=== PATIENT | female | born 1965 | race Caucasian/White ===

== ENCOUNTER → 2017-11-08 19:23 | Outpatient (CLI) | payer OTHER, SELFPAY ==
[2017-11-11 08:18] LABS: HPV APTIMA, High Risk Negative (Negative)
== END ==
PROVIDERS: Visit Provider Obstetrics & Gynecology
DX: Z12.4 Encounter for screening for malignant neoplasm of cervix (principal)
CPT/HCPCS: 88175; G0145

== ENCOUNTER → 2017-12-21 07:54 | Outpatient (CLI) | payer OTHER, SELFPAY ==
--- NOTE | 2017-12-21 07:56 | BI_ITS ---
MAMMOGRAPHY - BILATERAL SCREENING 3-D [place] SYNTHESIS REASON FOR EXAM: Female, 52 years old. Bilateral Screening 3-D tomosynthesis PERTINENT HISTORY: Asymptomatic. No significant family history. TECHNIQUE: 2-D mammograms and 3-D [place] synthesis of the breast (s) were performed. CAD was performed. COMPARISON: 10/22/2016, 10/20/2015. FINDINGS: The breast composition is composed of scattered fibroglandular density. No new asymmetric density, dominant mass, dense spiculated masses, abnormal clustered microcalcifications, architectural distortion, skin thickening or nipple retraction identified. Coarse benign-appearing calcifications. No new abnormality identified with tomosynthesis. There has been no significant change since the prior study. BI/SCREENING MAMM (CAD), BILAT IMPRESSION: No mammographic signs of malignancy. Routine yearly mammograms recommended. ASSESSMENT CATEGORY: BIRADS Category 2: Benign. A letter regarding these results will be sent to the patient by the facility within 30 days. FOLLOW UP RECOMMENDATION: Yearly follow up mammogram recommended. (A) Negative results should not deter biopsy as a palpable lesion should be followed on clinical grounds and biopsy performed if clinically persistent for 3 months or increasing size. Approximately 10% of breast cancers are not detected by mammography. A normal mammogram should not delay biopsy of a clinically suspicious abnormality. Electronically Signed: Cr Rodriguez, at 18:41 EDT Tel , Service support ,
== END ==
PROVIDERS: Family Provider Internal Medicine; PCP Internal Medicine; Visit Provider Obstetrics & Gynecology
DX: Z12.31 Encounter for screening mammogram for malignant neoplasm of breast (principal)
CPT/HCPCS: 77063; 77067

== ENCOUNTER → 2018-03-04 10:55 | Outpatient (CLI) | payer OTHER, SELFPAY ==
[2018-03-04 12:12] LABS: Absolute Lymphocyte Count 2.21 X10^3/ul (0.83-4.51); Absolute Neutrophil Count 2.7 X10^3/uL (2.0-7.7); Basophil# 0.01 X10^3/uL; Basophil% 0.2 % (0-1); Eosinophil# 0.14 X10^3/uL; Eosinophils% 2.5 % (0-5); Hematocrit 38.3 % (37-47); Hemoglobin 12.2 g/dl (12.0-15.0); Lymphocyte # 2.21 X10^3/ul (4.0); Lymphocyte % 39.6 % (19-41); Mean Corp Hgb Conc 31.9 g/gl (32-36); Mean Corpuscular Hgb 27.8 pg (27.0-32.0); Mean Corpuscular Volume 87.2 fL (81-99); Mean Platelet Vol. 11.9 fl (6.2-12.0); Monocyte# 0.54 X10^3/uL; Monocyte% 9.7 % (0-10); Neutrophil # 2.67 X10^3/uL (2.7-7.7); Neutrophil % 47.8 % (47-70); Platelet Count 278 K/mm3 (150-450); RBC Distribution Width CV 13.1 % (11.6-14.6); RBC Distribution Width SD 41.9 fl (35.1-43.9); Red Blood Count 4.39 M/mm3 (4.2-5.4); White Blood Count 5.6 K/mm3 (4.4-11.0)
[2018-03-04 12:13] LABS: POSITIVE COUNT NO; POSITIVE DIFFERENTIAL NO; POSITIVE MORPHOLOGY NO
[2018-03-04 12:39] LABS: ALB/GLOB Ratio 0.8 RATIO (0.9-2.4); AST(SGOT) 24 U/L (15-37); Alanine Aminotransfer ALT/SGPT 29 U/L (13-56); Albumin, Serum 3.3 g/dL (3.2-5.0); Alkaline Phosphatase 103 U/L (45-117); Anion Gap 5 (5-15); BUN 24 mg/dL (7-18); BUN/Creat Ratio 35.2 RATIO (10-20); Calcium,Total 8.6 mg/dL (8.5-10.1); Chloride 107 mmol/L (98-107); Cholesterol 216 mg/dL (200); Creatinine, Serum 0.68 mg/dL (0.55-1.02); EST Glomerular Filtration Rate 96 mL/min (>60); Est Glom Filt Rate - Afr Amer 116 mL/min (>60); Globulin 4.2 g/dL (2.2-4.2); Glucose 82 mg/dL (74-106); High Density Lipoprotein 87 mg/dL; Protein, Total 7.5 g/dL (6.4-8.2); Sodium Level 140 mmol/L (136-145); T4 Free Direct 1.31 ng/dL (0.76-1.46); Thyroid Stim Hormone (TSH) 0.02 uIU/mL (0.358-3.74); Triglycerides 31 mg/dL; Very Low Density Lipoprotein 6 mg/dL (5-40)
== END ==
PROVIDERS: Family Provider Internal Medicine; PCP Internal Medicine; Referring Provider Internal Medicine; Visit Provider Internal Medicine
DX: E03.9 Hypothyroidism, unspecified (principal)
CPT/HCPCS: 36415; 80053; 80061; 84439; 84443; 85025

== ENCOUNTER → 2018-12-22 | Outpatient (CLI) | payer OTHER, SELFPAY ==
[2018-11-21 11:24] VITALS: BMI 26.5
--- NOTE | 2018-12-22 11:52 | BI_ITS ---
MAMMOGRAPHY - BILATERAL SCREENING REASON FOR EXAM: Female, 53 years old. Routine annual screening examination. PERTINENT HISTORY: Non-contributory. TECHNIQUE: Digital bilateral breast [place] (3D mammographic acquisition) in the CC and MLO projections. 2-D mediolateral oblique (MLO) and craniocaudad (CC) views of both breasts were obtained. CAD: Full Field Digital Mammography with Computer Added Detection was performed. COMPARISON: Comparison is made with prior study dated December 21, 2017. FINDINGS: Breast Composition: There are scattered areas of fibroglandular density. There are no dominant masses or suspicious calcifications. No other significant abnormalities are identified. There has been no significant change since the prior study. BI/SCREEN MAMM (CAD) W/[place] BILAT IMPRESSION: Stable bilateral screening mammogram. Yearly follow-up mammogram recommended. (A) ASSESSMENT CATEGORY: BIRADS Category 1: Negative. A letter regarding these results will be sent to the patient by the facility within 30 days. Approximately 10% of breast cancers are not detected by mammography. A normal mammogram should not delay biopsy of a clinically suspicious abnormality. [id number] Electronically Signed: Felton Lemus, at 12:58 EDT , Service support ,
== END | disposition home or self-care (01) ==
PROVIDERS: Family Provider Internal Medicine; PCP Internal Medicine; Referring Provider Obstetrics & Gynecology; Visit Provider Obstetrics & Gynecology
DX: Z12.31 Encounter for screening mammogram for malignant neoplasm of breast (principal)
CPT/HCPCS: 77063; 77067

== ENCOUNTER 2020-02-01 19:57 | Emergency (ER) | payer OTHER, SELFPAY ==
[2019-11-28 09:40] VITALS: BMI 26.5
[2020-02-01 19:58] VITALS: BP 123/65; PULSE 74; RESP 18; TEMP 36.7; O2SAT 99; BMI 26.6
--- NOTE | 2020-02-01 20:01 | RAD_ITS ---
HISTORY: Fell down the stairs this evening. COMPARISON: None FINDINGS: # of images incl. paperwork: 3 XR Ankle Min 3 Views : An transverse fracture is present through the lateral malleolus. The ankle mortise is intact. Soft tissue swelling is about the ankle, greater laterally. An ankle effusion is present. No additional fractures are perceived. RAD/Ankle min 3 Views IMPRESSION: Lateral malleolus fracture with effusion and soft tissue swelling to the Right ankle at 2043 Reported and signed by: Deuce Branham MD Electronically Signed: Deuce Branham MD at 20:42 EDT Tel , Service support ,
--- NOTE | 2020-02-01 20:06 | RAD_ITS ---
HISTORY: Fell down the stairs this evening. COMPARISON: None FINDINGS: # of images incl. paperwork: 3 XR Ankle Min 3 Views : Tiny corticated ossicles are present inferior to the medial malleolus No acute fracture is perceived The ankle mortise is intact. Soft tissue swelling is is present about the ankle with an ankle effusion.. RAD/Ankle min 3 Views IMPRESSION: No acute fracture to the Left ankle. Probable tiny old avulsion fracture from the medial malleolus at 2044 Reported and signed by: Deuce Branham MD Electronically Signed: Deuce Branham MD at 20:42 EDT Tel , Service support ,
--- NOTE | 2020-02-01 22:25 | RAD_ITS ---
STUDY: X-RAY - LEFT FOOT CLINICAL: Female, 54 years old. L down stairs. Bruising and swelling over the dorsal lateral aspect of the foot. TECHNIQUE: 3 view(s) of the foot. COMPARISON: None. FINDINGS: Normal talus, calcaneus, and tarsal bones. Normal visualized subtalar, talonavicular, calcaneocuboid, tarsal and tarsometatarsal articulations. Normal metatarsi. Normal metatarsophalangeal joint of the great toe. Normal tibial and fibular sesamoid bones. Normal interphalangeal joint of the great toe. Normal phalanges of the great toe. Normal second through fifth metatarsophalangeal joints. Normal interphalangeal joints and phalanges of the lesser toes. The soft tissue structures are unremarkable. RAD/Foot min 3 Views IMPRESSION: No acute fracture or dislocation. Electronically Signed: Junior Machuca DO at 23:08 EDT Tel [phone], Service support ,
--- NOTE | 2020-02-02 00:01 | ED.DCSUM_ITS ---
History of Present Illness Chief Complaint: Lower Extremity Injury Informant: Patient Occurred: Today Mechanism/Context: Fall Onset: Today Context: Sudden Onset Timing: Continuous Quality of Pain: Aching Narrative: Patient is a 54-year-old female with history of hypothyroid presenting with bilateral ankle pain after mechanical fall. Patient states she slipped on the last 4 or 5 steps at her house. She not hit her head. She denies any loss of consciousness. She has significant pain of her right ankle but also has pain of her left. She has bilateral swelling and bruising. She is not on any blood thinners. She temporarily had some tingling of her toes but this is since resolved. She not take anything for pain prior to arrival. No other complaints at this time. No prior history of any ankle or foot injuries. Past Medical History - Allergies and Home Meds Allergies/Adverse Reactions: Allergies No Known Allergies Allergy (Verified 02/01/20 20:00) Primary Care Physician: Shani Castro MD [Primary Care Provider] - Past Medical History: - - Hypothyroid Surgical History: noncontributory Lives: Spouse/ Significant Other Smoking Status: Never smoker Review of Systems General: Denies: Chills, Fever, Sweats Eyes: Denies: Visual changes - bilaterally, Diplopia ENT: Denies: Rhinorrhea, Sore throat Cardiovascular: Denies: Chest pain, Palpitations Respiratory: Denies: Dyspnea, Cough, Dyspnea on exertion Gastrointestinal: Denies: Abdominal pain, Nausea, Vomiting, Diarrhea, Melena, Hematochezia Genitourinary: Denies: Dysuria, Hematuria, Frequency Musculoskeletal: Reports: Swelling - Bilateral ankles, Extremity Pain - Lateral ankles. Denies: Back pain Skin: Denies: Rash, Wounds Neurological: Denies: Headache, Weakness, Numbness Physical Exam Inital Vital Signs reviewed: Yes - Extremity Exam Right Hip: Negative for: Deformity, Limited ROM Left Hip: Negative for: Deformity, Limited ROM Right Femur: Negative for: Deformity, Limited ROM Left Femur: Negative for: Deformity, Limited ROM Right Knee: Negative for: Deformity, Limited ROM Left Knee: Negative for: Deformity, Limited ROM Right Tib fib: - - Tenderness to palpation of the fibular head absent. Negative for: Deformity, Edema, Limited ROM Left Tib Fib: - - Tenderness to palpation of the fibular head absent. Negative for: Deformity, Edema, Limited ROM Right Ankle: Deformity - lateral ankle, Edema, Limited ROM, - - Normal Achilles mechanism Left Ankle: Edema, - - Normal Achilles mechanism. Negative for: Limited ROM Right Foot: Negative for: Deformity, Edema, Hematoma, Limited ROM Left Foot: Edema, - - Tenderness to palpation over the lateral proximal midfoot with associated soft tissue swelling and bruising. Negative for: Deformity, Limited ROM General: Well nourished, Well developed Head: Normocephalic, Atraumatic. Negative for: Trauma Eyes: Perrl, EOMI, - ENT: No Trauma, Moist Mucous Membranes, - - Hemotympanum absent Neck: Nontender, Full ROM Cardiovascular: Regular rate, Regular rhythm, No murmurs, - - 2+ bilateral DP pulses, brisk capillary refill Respiratory: No distress, CTA bilaterally, Chest nontender Abdomen: Soft, Nontender Skin: Normal color, No rash, - - See above Neurological: Alert, Oriented x3, Cranial nerves II-XII grossly intact, Normal Strength, Normal Sensation Psychological: Normal affect Diagnostic/Tx/Re-eval Clinical Impression(s) from Imaging Studies Ankle X-Ray 02/01/20 20:01 IMPRESSION: Lateral malleolus fracture with effusion and soft tissue swelling to the Right ankle at 2043 Reported and signed by: Deuce Branham MD Electronically Signed: Deuce Branham MD at 20:42 EDT Tel , Service support , Ankle X-Ray 02/01/20 20:06 IMPRESSION: No acute fracture to the Left ankle. Probable tiny old avulsion fracture from the medial malleolus at 2044 Reported and signed by: Deuce Branham MD Electronically Signed: Deuce Branham MD at 20:42 EDT Tel , Service support , Foot X-Ray 02/01/20 22:25 IMPRESSION: No acute fracture or dislocation. Electronically Signed: Junior Machuca DO at 23:08 EDT Tel [phone], Service support , - Medical Decision Making Patient is evaluated for ankle/feet injury after mechanical fall down the stairs. She appears nontoxic in no acute distress. She declines any pain medication in the emergency room. She does have significant swelling of her right lateral ankle as well as her left proximal lateral foot/ankle. Associated pinpoint tenderness to palpation of the right lateral malleolus. Range of motion is intact and she is neuro vastly intact. X-ray does show acute fracture of the right lateral malleolus. Joint space appears to be intact however I did discuss with podiatry on-call, Dr. Sandoval, who recommends a posterior splint. Patient is not appear to have any acute process of the left foot or ankle. She does have an old avulsion fracture but this is chronic. She is able to weight- bear on her left foot. Patient will be treated with an Bert wrap for sprain of her left ankle. She is given close podiatry outpatient follow-up. She is counseled on return precautions. Patient states he is having a lot of cramping in her legs and is requesting something for this. She is given 1 oral Valium just prior to discharge home. She is given a course of Motrin and Vernon for pain control. ED Disposition - Plan for ED Patient: Disposition: Home or Assisted Living Diagnosis: Left ankle sprain, Fracture of right ankle, lateral malleolus Instructions: ED Sprain Ankle, ED Ankle Fx Distal Fibula Prescriptions: Ibuprofen [Motrin] 600 mg PO Q6H PRN PRN #20 tab PRN Reason: Pain Score 1-10/10 Transmission Status: Pending to [id number] Hydrocodone Bitart/Apap 5-325 [Vernon 5MG-325MG] 1 tablet PO Q6H PRN PRN 3 Days #10 tablet PRN Reason: Pain Transmission Status: Received by [id number] Referrals: Shani Castro MD [Primary Care Provider] - Krysta Daigle DPM [STAFF PHYSICIAN] - Additional Instructions: Call podiatry on Tuesday morning to schedule a same-day appointment. Alternate Vernon and ibuprofen for pain. Elevate your leg is much as possible. Try not putting weight on your leg.
== END 2020-02-02 00:38 | disposition home or self-care (01) ==
PROVIDERS: Emergency Provider Emergency Medicine; PCP Internal Medicine
DX: S82.61XA Displaced fracture of lateral malleolus of right fibula, initial encounter for closed fracture (principal); S93.402A Sprain of unspecified ligament of left ankle, initial encounter; R25.2 Cramp and spasm; W10.9XXA Fall (on) (from) unspecified stairs and steps, initial encounter; Y93.9 Activity, unspecified; Y92.008 Other place in unspecified non-institutional (private) residence as the place of occurrence of the external cause; Y99.9 Unspecified external cause status; E03.9 Hypothyroidism, unspecified; Z79.899 Other long term (current) drug therapy
CPT/HCPCS: 29515; 73610; 73630; 99282

== ENCOUNTER → 2020-11-18 08:19 | Outpatient (CLI) | payer OTHER, SELFPAY ==
--- NOTE | 2020-11-18 08:21 | BI_ITS ---
MAMMOGRAPHY - BILATERAL SCREENING REASON FOR EXAM: Female, 55 years old. Routine annual screening examination. PERTINENT HISTORY: Non-contributory. TECHNIQUE: Digital bilateral breast [place] (3D mammographic acquisition) in the CC and MLO projections. 2-D mediolateral oblique (MLO) and craniocaudad (CC) views of both breasts were obtained. CAD: Full Field Digital Mammography with Computer Added Detection was performed. COMPARISON: Comparison is made with prior examination dated 12/22/2018 and 12/21/2017. FINDINGS: Breast Composition: There are scattered areas of fibroglandular density. There are no dominant masses or suspicious calcifications. No other significant abnormalities are identified. There has been no significant change since the prior study. BI/SCRN MAMM (CAD)W/[place] BILAT IMPRESSION: Stable bilateral screening mammogram. Yearly follow-up mammogram recommended. (A) ASSESSMENT CATEGORY: BIRADS Category 1: Negative. A letter regarding these results will be sent to the patient by the facility within 30 days. Approximately 10% of breast cancers are not detected by mammography. A normal mammogram should not delay biopsy of a clinically suspicious abnormality. [id number] Electronically Signed: Felton Lemus MD at 9:34 EDT , Service support ,
== END ==
PROVIDERS: PCP Internal Medicine; Referring Provider Obstetrics & Gynecology; Visit Provider Obstetrics & Gynecology
DX: Z12.31 Encounter for screening mammogram for malignant neoplasm of breast (principal)
CPT/HCPCS: 77063; 77067

== ENCOUNTER → 2020-12-17 10:28 | Outpatient (CLI) | payer OTHER, SELFPAY ==
[2020-12-01 08:38] VITALS: BMI 26.6
--- NOTE | 2020-12-17 10:34 | BD_ITS ---
STUDY: DUAL ENERGY X-RAY ABSORPTIOMETRY / DXA REASON FOR EXAM: Female, 55 years old. Z78.0. Patient is postmenopausal. TECHNIQUE: Bone Mineral Density (BMD) measurements of lumbar spine and bilateral hips were obtained. COMPARISON: None. FINDINGS: Lumbar Spine (L1-L4): g/cm2 (1.048) / T-score (0.0) / Z-score (1.2) Findings are suggestive of normal bone density with a low fracture risk. Left Femur Total: g/cm2 (0.977) / T-score (0.3) / Z-score (1.1) Left Femoral Neck: g/cm2 (0.785) / T-score (-0.6) / Z-score (0.6) Right Femur Total: g/cm2 (0.930) / T-score (-0.1) / Z-score (0.7) Right Femoral Neck: g/cm2 (0.717) / T-score (-1.2) / Z-score (-0.1) BD/Dexa Bone Density Study IMPRESSION: The patient is considered osteopenic as outlined below according to World Jar[employer] Organization (WHO) criteria with a low fracture risk. Reference Information: The T-score is the number of standard deviations above or below the standard which is normal for young adults at their peak bone mineral density. The World Health Organization (WHO) interprets the T-scores as follows: Above -1 Normal bone density Between -1 and -2.5 Osteopenia Equal to / or below -2.5 Osteoporosis As a practical clinical guideline, osteopenia may be graded as follows: Mild -1 through -1.5 Moderate -1.6 through -2.0 Severe -2.1 through -2.4 The Z-score is the number of standard deviations above or below age-matched controls. A Z-score of less than -1.5 would be considered abnormal. References: 1. NIH Osteoporosis and Related Bone Diseases www osteo.org 2. International Society for Clinical Densitometry www iscd.org 3. National Osteoporosis Foundation www nof.org Electronically Signed: Felton Lemus MD at 14:53 EDT , Service support ,
== END ==
PROVIDERS: PCP Internal Medicine; Referring Provider Obstetrics & Gynecology; Visit Provider Obstetrics & Gynecology
DX: Z78.0 Asymptomatic menopausal state (principal)
CPT/HCPCS: 77080

== ENCOUNTER → 2021-12-03 | Outpatient (CLI) | payer OTHER, SELFPAY ==
[2021-12-07 16:25] LABS: HPV APTIMA, High Risk Negative (Negative)
== END | disposition home or self-care (01) ==
LOC: LABSPEC 12-10 13:08
PROVIDERS: PCP Internal Medicine; Visit Provider Obstetrics & Gynecology
DX: Z78.0 Asymptomatic menopausal state (principal)
CPT/HCPCS: 87624; 88175; G0145

== ENCOUNTER → 2021-12-18 | Outpatient (CLI) | payer OTHER, SELFPAY ==
--- NOTE | 2021-12-18 08:11 | BI_ITS ---
MAMMOGRAPHY - BILATERAL SCREENING REASON FOR EXAM: Female, 56 years old. Routine annual screening examination. PERTINENT HISTORY: Grandmother with breast cancer. TECHNIQUE: Digital bilateral breast [place] (3D mammographic acquisition) in the CC and MLO projections. 2-D mediolateral oblique (MLO) and craniocaudad (CC) views of both breasts were obtained. CAD: Full Field Digital Mammography with Computer Added Detection was performed. COMPARISON: Comparison is made with prior study dated 11/18/2020 and 12/22/2018. FINDINGS: Breast Composition: There are scattered areas of fibroglandular density. There are no dominant masses or suspicious calcifications. No other significant abnormalities are identified. There has been no significant change since the prior study. BI/SCRN MAMM (CAD)W/[place] BILAT IMPRESSION: Stable bilateral screening mammogram. Yearly follow-up mammogram recommended. (A) ASSESSMENT CATEGORY: BIRADS Category 1: Negative. A letter regarding these results will be sent to the patient by the facility within 30 days. Approximately 10% of breast cancers are not detected by mammography. A normal mammogram should not delay biopsy of a clinically suspicious abnormality. [id number] Electronically Signed: Felton Lemus MD at 8:51 EDT ,
== END | disposition home or self-care (01) ==
PROVIDERS: PCP Family Medicine; Visit Provider Obstetrics & Gynecology
DX: Z12.31 Encounter for screening mammogram for malignant neoplasm of breast (principal)
CPT/HCPCS: 77063; 77067

== ENCOUNTER → 2022-11-15 | Outpatient (CLI) | payer OTHER, SELFPAY ==
[2022-11-15 13:12] LABS: ALB/GLOB Ratio 0.9 RATIO (0.9-2.4); AST(SGOT) 17 U/L (15-37); Alanine Aminotransfer ALT/SGPT 18 U/L (13-56); Albumin, Serum 3.5 g/dL (3.2-5.0); Alkaline Phosphatase 95 U/L (45-117); Anion Gap 4 (5-15); BUN 19 mg/dL (7-18); BUN/Creat Ratio 24.4 RATIO (10-20); Calcium,Total 9.2 mg/dL (8.5-10.1); Chloride 108 mmol/L (98-107); Cholesterol 268 mg/dL (200); Creatinine, Serum 0.78 mg/dL (0.55-1.02); EST Glomerular Filtration Rate 81 mL/min (>60); Est Glom Filt Rate - Afr Amer 98 mL/min (>60); Globulin 4.1 g/dL (2.2-4.2); Glucose 92 mg/dL (74-106); High Density Lipoprotein 79 mg/dL; Potassium 4.1 mmol/L (3.5-5.1); Protein, Total 7.6 g/dL (6.4-8.2); Sodium Level 139 mmol/L (136-145); T4 Free Direct 1.16 ng/dL (0.76-1.46); Thyroid Stim Hormone (TSH) 1.36 uIU/mL (0.358-3.74); Triglycerides 51 mg/dL; Very Low Density Lipoprotein 10 mg/dL (5-40)
== END | disposition home or self-care (01) ==
LOC: MFPLAB 10:51
PROVIDERS: PCP Family Medicine; Visit Provider Family Medicine
DX: E03.9 Hypothyroidism, unspecified (principal); Z13.220 Encounter for screening for lipoid disorders
CPT/HCPCS: 36415; 80053; 80061; 84439; 84443

== ENCOUNTER → 2022-12-27 | Outpatient (CLI) | payer OTHER, SELFPAY ==
--- NOTE | 2022-12-27 13:31 | BI_ITS ---
MAMMOGRAPHY - BILATERAL SCREENING REASON FOR EXAM: Female, 57 years old. Routine annual screening examination. PERTINENT HISTORY: Grandmother with breast cancer. TECHNIQUE: Digital bilateral breast [place] (3D mammographic acquisition) in the CC and MLO projections. 2-D mediolateral oblique (MLO) and craniocaudad (CC) views of both breasts were obtained. CAD: Full Field Digital Mammography with Computer Added Detection was performed. COMPARISON: Comparison is made with prior study of December 18, 2021 and November 18, 2020. FINDINGS: Breast Composition: There are scattered areas of fibroglandular density. There are no dominant masses or suspicious calcifications. Stable benign-appearing bilateral axillary lymph nodes. No other significant abnormalities are identified. There has been no significant change since the prior study. BI/SCRN MAMM (CAD)W/[place] BILAT IMPRESSION: Stable bilateral screening mammogram. Yearly follow-up mammogram recommended. (A) ASSESSMENT CATEGORY: BIRADS Category 2: Benign. A letter regarding these results will be sent to the patient by the facility within 30 days. Approximately 10% of breast cancers are not detected by mammography. A normal mammogram should not delay biopsy of a clinically suspicious abnormality. [id number] Electronically Signed: Felton Lemus MD at 15:25 EDT ,
== END | disposition home or self-care (01) ==
LOC: OPBI 13:30
PROVIDERS: PCP Family Medicine; Referring Provider Obstetrics & Gynecology; Visit Provider Obstetrics & Gynecology
DX: Z12.31 Encounter for screening mammogram for malignant neoplasm of breast (principal)
CPT/HCPCS: 77063; 77067

== ENCOUNTER 2023-05-10 14:24 | Emergency (ER) | payer OTHER, SELFPAY ==
[2023-05-10 14:26] VITALS: BP 99/65; PULSE 76; RESP 18; TEMP 36.4; O2SAT 97; BMI 27.6
--- NOTE | 2023-05-10 16:02 | EDS_ITS ---
HPI <JEROMY Sorto - Last Filed: 05/10/23 17:01> History of Present Illness Chief Complaint: Other, Pain/Inj Narrative Narrative: Patient is a 58-year-old female with history of hypothyroidism who presents to the emergency department for 5 days of muscle skeletal neck pain. Patient states it started 5 days ago during the afternoon. She denies any radiation to her upper extremities, denies any headache, denies any fever chills or infectious symptoms. Patient dates the pain is worse with movement, she has to lift her head up off her pillow. She did drive here. PFSH <JEROMY Sorto - Last Filed: 05/10/23 17:01> [facility] Medical History Hypothyroidism (acquired) Postmenopausal Home Medications levothyroxine 88 mcg tablet (Levoxyl) 88 mcg PO DAILY 11/28/19 [History Last Taken Unknown] cyclobenzaprine 10 mg tablet 10 mg PO TID PRN Muscle Spasm #20 TABLETS 05/10/23 [Rx Last Taken Unknown] naproxen 500 mg tablet (Naprosyn) 500 mg PO BID PRN pain #20 tabs 05/10/23 [Rx Last Taken Unknown] Allergy/AdvReac Type Severity Reaction Status Date / Time No Known Allergies Allergy Verified 05/10/23 14:25 Family History Father Diabetes Grandmother , onset age 102 at 103 Breast cancer, Onset Age: 102 Surgical History H/O blepharoplasty H/O dilation and curettage Hx of colonoscopy Social History Smoking Status: Never smoker alcohol intake: never substance use type: does not use caffeine: No what type of physical activity do you participate in: walking frequency: daily seatbelt use: always do you feel safe at home: Yes additional social history: [employer]- [employer] Patient is a teacher ROS <JEROMY Sorto - Last Filed: 05/10/23 17:01> ROS ED ROS Narrative Constitutional: Negative for fever, chills, weight loss, weakness Eyes: Negative for vision loss, vision change, double vision ENT: Negative for any sore throat, ear pain, congestion Cardiovascular: Negative for any chest pain, tightness, palpitations Respiratory: Negative for any cough, sputum production, hemoptysis, dyspnea, dyspnea on exertion, orthopnea Gastrointestinal: Negative for any abdominal pain, nausea, vomiting, diarrhea, constipation, blood in stool, blood in vomit : Negative for any urinary frequency, dysuria, retention, blood in urine Muscle skeletal: Negative for any myalgias, arthralgias, back pain. Positive for neck pain Neurological: Negative for any headache, syncope, paresthesias, dizziness Skin: Negative for any rashes, lumps, itching, abrasions, lacerations Psychiatric: Negative for any depression, anxiety, stress, suicidal ideation, homicidal ideation Hematologic: Negative for any easy bruising, excessive bruising, easy bleeding Allergies: Negative for any eczema, hives, rash EXAM <JEROMY Sorto - Last Filed: 05/10/23 17:01> Physical Exam Narrative Exam Narrative: Vital signs reviewed. HEET: Head normocephalic atraumatic, TMs clear bilaterally. Posterior pharynx is clear, moist mucous membranes. Nares clear bilaterally. Neck: Supple with no lymphadenopathy or tenderness. No signs of meningismus. Patient has pain worse with flexion extension there is no rigidity. Patient has some pain to her shoulder blades. Pain is worse when rotating to the right. On passive range of motion she has less pain. Cardiac: Regular rate and rhythm no murmurs gallops or rubs, equal peripheral pulses bilaterally. Respiratory: Lungs clear to auscultation bilaterally. No chest tenderness. Abdomen: Soft, nontender, nondistended. No abdominal bruit or pulsatile masses. No hepatosplenomegaly Extremities: No peripheral edema, no signs of gross trauma or deformity. Active full range of motion of all extremities. Neuro: Cranial nerves II through XII intact, no focal neurological deficits. Skin: Clean dry and intact with no rash, purpura, petechiae, vesicles or pustules. Backs/flank: No CVA tenderness, no midline spinal tenderness, no deformity. Psych: Normal mood and affect. No SI, HI or acute psychosis. Const Vital Signs: 05/10/23 14:26 05/10/23 15:41 05/10/23 17:20 Temperature 97.6 F L Temperature Source Temporal Pulse Rate 76 62 Respiratory Rate 18 16 Respiratory Effort Normal Respiratory Pattern Normal Blood Pressure 99/65 Blood Pressure Mean 76 Pulse Ox 97 Positive well nourished and well developed General Appearance ED: well developed <Hany Strong MD - Last Filed: 05/10/23 22:51> Physical Exam Const Vital Signs: 05/10/23 14:26 05/10/23 15:41 05/10/23 17:20 Temperature 97.6 F L Temperature Source Temporal Pulse Rate 76 62 Respiratory Rate 18 16 Respiratory Effort Normal Respiratory Pattern Normal Blood Pressure 99/65 Blood Pressure Mean 76 Pulse Ox 97 MDM <JEROMY Sorto - Last Filed: 05/10/23 17:01> [facility] Treatment and Re-Evaluation :: Patient appears to be in no obvious distress, vital signs are stable, presenting to the emergency department with neck pain for the last 5 days. Physical examination is consistent with muscle skeletal pain however patient's differential diagnose includes cervical strain, muscle spasm, meningitis. Patient was given IM Toradol, IM Norflex. Patient be reevaluated. Patient on reevaluation was feeling slightly better. At this time, patient be diagnosed with cervical strain. She will be given a prescription for naproxen as well as Flexeril. She will not take her meloxicam while she is on the naproxen. She is instructed return for any worsening symptoms. All questions were answered, patient stable for discharge <Hany Strong MD - Last Filed: 05/10/23 22:51> [facility] Narrative Medical decision making narrative: Dr. Strong: I have personally performed a face to face assessment of the patient and have reviewed the GABBIE Note. I performed a substantive portion of the visit including all aspects of the following. My shetty findings include: History is bilateral paraspinal neck pain. No injury. No fever. Exam is afebrile. Vital signs noted. GCS 15. ABCs intact. Regular rate and rhythm. Lungs clear to auscultation bilaterally. Abdomen soft and nontender with normal active bowel sounds. Mild tenderness to palpation bilateral paraspinal neck muscles at base of skull. No vertebral point tenderness or bony step-off. Medical Decision Making: Feel that imaging is indicated. Seems reproducible and muscular. Treat will be symptomatic. She will be started on anti-inflamm atories and a muscle relaxer. I feel she can be discharged safely home to follow-up with her primary care provider. Return instructions reviewed. Disposition is discharged in stable condition. Other additions or changes: [None] History & Record Review Discussion w/independent historian: Patient Additional record(s) reviewed:: Prior outpatient record Discharge Plan Triage Chief Complaint: Other, Pain/Inj ED Midlevel Provider: Aldo Kincaid ED Provider: Hany Strong Dx/Rx/DC Orders Clinical Impression: Cervical strain Instructions: ED Neck Sprain or Strain Prescriptions: New cyclobenzaprine 10 mg tablet 10 mg PO TID PRN (Reason: Muscle Spasm) Qty: 20 0RF naproxen [Naprosyn] 500 mg tablet 500 mg PO BID PRN (Reason: pain) Qty: 20 0RF No Action levothyroxine [Levoxyl] 88 mcg tablet 88 mcg PO DAILY Primary Care Provider: Lakia Ren Referrals: Lakia Ren, [Primary Care Provider] - Activity Restrictions/Additional Instructions: He may take the anti-inflammatory naproxen and the Flexeril, while on these medications you do NOT take the meloxicam. Disposition Disposition: Home, Self Care Discharge Date/Time: 05/10/23 17:23
[2023-05-10] MEDS: Ketorolac 30 MG/ML Syringe IM (16:10)
[2023-05-10] MEDS: Orphenadrine 60 MG/2 ML Ampul IM (16:10)
[2023-05-10 17:20] VITALS: PULSE 62; RESP 16
== END 2023-05-10 17:23 | disposition home or self-care (01) ==
PROVIDERS: Emergency Provider Emergency Medicine; PCP Family Medicine; Visit Provider Emergency Medicine
DX: S16.1XXA Strain of muscle, fascia and tendon at neck level, initial encounter (principal); X58.XXXA Exposure to other specified factors, initial encounter
CPT/HCPCS: 96372; 99282

== ENCOUNTER → 2023-11-03 | Outpatient (CLI) | payer OTHER, SELFPAY ==
[2023-11-03 12:08] LABS: Absolute Lymphocyte Count 2.32 X10^3/uL (0.83-4.51); Absolute Neutrophil Count 3.2 X10^3/uL (2.0-7.7); Basophil# 0.04 X10^3/uL; Basophil% 0.6 % (0-1); Eosinophil# 0.11 X10^3/uL; Eosinophils% 1.7 % (0-5); Hematocrit 38.9 % (37-47); Hemoglobin 12.2 g/dL (12.0-15.0); Lymphocyte # 2.32 X10^3/ul (0.83-4.51); Lymphocyte % 36.8 % (19-41); Mean Corp Hgb Conc 31.4 g/dL (32-36); Mean Corpuscular Hgb 27.7 pg (27.0-32.0); Mean Corpuscular Volume 88.2 fL (81-99); Monocyte# 0.61 X10^3/uL; Monocyte% 9.7 % (0-10); NRBC Flagged by Analyzer 0 % (0-5); Neutrophil # 3.21 X10^3/uL (2.7-7.7); Platelet Count 312 K/mm3 (150-450); RBC Distribution Width CV 13.2 % (11.6-14.6); Red Blood Count 4.41 M/mm3 (4.2-5.4); White Blood Count 6.3 K/mm3 (4.4-11.0)
[2023-11-03 12:40] LABS: Vitamin D,25 Hydroxy 63.2 ng/mL
[2023-11-03 13:30] LABS: ALB/GLOB Ratio 0.8 RATIO (0.9-2.4); AST(SGOT) 25 U/L (15-37); Alanine Aminotransfer ALT/SGPT 28 U/L (13-56); Albumin, Serum 3.4 g/dL (3.2-5.0); Alkaline Phosphatase 97 U/L (45-117); Anion Gap 8 (5-15); BUN 22 mg/dL (7-18); Calcium,Total 8.6 mg/dL (8.5-10.1); Chloride 106 mmol/L (98-107); Cholesterol 221 mg/dL (200); Creatinine, Serum 0.85 mg/dL (0.55-1.02); EST Glomerular Filtration Rate 73 mL/min (>60); Est Glom Filt Rate - Afr Amer 88 mL/min (>60); Globulin 4.2 g/dL (2.2-4.2); Glucose 85 mg/dL (74-106); High Density Lipoprotein 82 mg/dL; Potassium 3.8 mmol/L (3.5-5.1); Protein, Total 7.6 g/dL (6.4-8.2); Sodium Level 137 mmol/L (136-145); Thyroid Stim Hormone (TSH) 0.28 uIU/mL (0.358-3.74); Triglycerides 39 mg/dL; Very Low Density Lipoprotein 8 mg/dL (5-40)
== END | disposition home or self-care (01) ==
LOC: MFPLAB 11:01
PROVIDERS: PCP Family Medicine; Visit Provider Family Medicine
DX: E03.9 Hypothyroidism, unspecified (principal); E78.2 Mixed hyperlipidemia; Z78.0 Asymptomatic menopausal state
CPT/HCPCS: 36415; 80053; 80061; 82306; 84443; 85025

== ENCOUNTER → 2024-02-24 | Outpatient (CLI) | payer OTHER, SELFPAY ==
--- NOTE | 2024-02-24 10:42 | BI_ITS ---
MAMMOGRAPHY - BILATERAL SCREENING REASON FOR EXAM: Female, 58 years old. Routine annual screening examination. PERTINENT HISTORY: Grandmother with breast cancer. TECHNIQUE: Digital bilateral breast [place] (3D mammographic acquisition) in the CC and MLO projections. 2-D mediolateral oblique (MLO) and craniocaudad (CC) views of both breasts were obtained. CAD: Full Field Digital Mammography with Computer Added Detection was performed. COMPARISON: Comparison is made with prior study December 27, 2022 and December 18, 2021. FINDINGS: Breast Composition: There are scattered areas of fibroglandular density. There are no dominant masses or suspicious calcifications. No other significant abnormalities are identified. There has been no significant change since the prior study. BI/SCRN MAMM (CAD)W/[place] BILAT IMPRESSION: Stable bilateral screening mammogram. Yearly follow-up mammogram recommended. (A) ASSESSMENT CATEGORY: BIRADS Category 1: Negative. A letter regarding these results will be sent to the patient by the facility within 30 days. Approximately 10% of breast cancers are not detected by mammography. A normal mammogram should not delay biopsy of a clinically suspicious abnormality. [id number] Electronically Signed: Felton Lemus MD at 14:03 EDT ,
== END | disposition home or self-care (01) ==
LOC: OPBI 10:42
PROVIDERS: PCP Family Medicine; Referring Provider Obstetrics & Gynecology; Visit Provider Obstetrics & Gynecology
DX: Z12.31 Encounter for screening mammogram for malignant neoplasm of breast (principal); Z80.3 Family history of malignant neoplasm of breast
CPT/HCPCS: 77063; 77067

== ENCOUNTER → 2024-11-06 | Outpatient (CLI) | payer OTHER, SELFPAY ==
[2024-11-06 17:50] LABS: Absolute Lymphocyte Count 2.82 X10^3/uL (0.83-4.51); Absolute Neutrophil Count 3.6 X10^3/uL (2.0-7.7); Basophil# 0.04 X10^3/uL; Basophil% 0.5 % (0-1); Eosinophil# 0.09 X10^3/uL; Eosinophils% 1.2 % (0-5); Hematocrit 37.8 % (37-47); Hemoglobin 11.9 g/dL (12.0-15.0); Lymphocyte # 2.82 X10^3/ul (0.83-4.51); Lymphocyte % 37.6 % (19-41); Mean Corp Hgb Conc 31.5 g/dL (32-36); Mean Corpuscular Hgb 27.9 pg (27.0-32.0); Mean Corpuscular Volume 88.7 fL (81-99); Mean Platelet Vol. 11.7 fl (6.2-12.0); Monocyte# 0.89 X10^3/uL; Monocyte% 11.9 % (0-10); NRBC Flagged by Analyzer 0 % (0-5); Neutrophil # 3.64 X10^3/uL (2.7-7.7); Neutrophil % 48.5 % (47-70); Platelet Count 307 K/mm3 (150-450); RBC Distribution Width CV 13.2 % (11.6-14.6); RBC Distribution Width SD 43.2 fl (35.1-43.9); Red Blood Count 4.26 M/mm3 (4.2-5.4); White Blood Count 7.5 K/mm3 (4.4-11.0)
[2024-11-06 18:30] LABS: ALB/GLOB Ratio 1.3 RATIO (0.9-2.4); AST(SGOT) 24 U/L (<=31); Alanine Aminotransfer ALT/SGPT 22 U/L (<=34); Albumin, Serum 3.9 g/dL (3.4-4.8); Alkaline Phosphatase 95 U/L (35-104); Anion Gap 11 (5-15); BUN 24 mg/dL (4-19); BUN/Creat Ratio 30.3 RATIO (10-20); Calcium,Total 8.9 mg/dL (7.6-11.0); Carbon Dioxide 24.2 mmol/L (21.0-32.0); Chloride 106 mmol/L (98-108); Cholesterol 221 mg/dL (<=200); Creatinine, Serum 0.78 mg/dL (0.70-1.20); EST Glomerular Filtration Rate 87 (>60); Glucose 89 mg/dL (70-99); High Density Lipoprotein 83 mg/dL; Low Density Lipoprotein Calc. 123 mg/dL; Potassium 3.9 mmol/L (3.3-5.1); Sodium Level 141 mmol/L (133-145); Total Bilirubin 0.18 mg/dL (0.00-1.30); Triglycerides 76 mg/dL; Very Low Density Lipoprotein 15 mg/dL (5-40); cholesterol:hdl ratio screen 2.66
[2024-11-06 19:23] LABS: Thyroid Stim Hormone (TSH) 0.079 uIU/mL (0.300-4.200); Vitamin D,25 Hydroxy 58.3 ng/mL (30-100)
== END | disposition home or self-care (01) ==
LOC: MFPLAB 17:05
PROVIDERS: PCP Family Medicine; Referring Provider Family Medicine; Visit Provider Family Medicine
DX: Z00.00 Encounter for general adult medical examination without abnormal findings (principal); Z13.220 Encounter for screening for lipoid disorders; Z13.1 Encounter for screening for diabetes mellitus; E03.9 Hypothyroidism, unspecified
CPT/HCPCS: 36415; 80053; 80061; 82306; 84443; 85025

== ENCOUNTER → 2025-03-11 | Outpatient (CLI) | payer OTHER, SELFPAY ==
--- NOTE | 2025-03-11 08:30 | BI_ITS ---
EXAM: SCRN MAMM (CAD)W/[place] BILAT DATE: 03/11/2025 CLINICAL HISTORY: F, Age 60 y/o , SCREEN FOR BREAST CANCER Patient's grandmother was diagnosed with breast cancer. TECHNIQUE: Procedure Code: [id number] Modality: MG Procedure: SCRN MAMM (CAD)W/[place] BILAT COMPARISON: Prior exam(s) dated 02/24/2024 and 12/27/2022. FINDINGS: TISSUE DENSITY: There are scattered areas of fibroglandular density. Bilateral Breast Mammographic Findings: No significant masses, calcifications or other abnormalities are identified. BI/SCRN MAMM (CAD)W/[place] BILAT IMPRESSION: Negative screening mammogram OVERALL FINAL ASSESSMENT BI-RADS 1: NEGATIVE. RECOMMENDATION: Routine annual follow-up in 1 Year Additional Recommendation none A letter with findings and recommendations will be mailed to the patient. Reading Location: [id number]
== END | disposition home or self-care (01) ==
LOC: OPBI 08:28
PROVIDERS: PCP Family Medicine; Referring Provider Obstetrics & Gynecology; Visit Provider Obstetrics & Gynecology
DX: Z12.31 Encounter for screening mammogram for malignant neoplasm of breast (principal); Z80.3 Family history of malignant neoplasm of breast
CPT/HCPCS: 77063; 77067